=== PATIENT | female | born 1950 | race Caucasian/White ===

== ENCOUNTER → 2017-02-09 | Outpatient (CLI) | payer MEDICARE ==
[2017-02-09 13:53] LABS: BUN 16 mg/dL (7-18)
[2017-02-09 13:54] LABS: GFR (ESTIMATED) 41 ML/MIN (59-)
[2017-02-09 14:35] LABS: HEMOGLOBIN 10.6 g/dL (12.2-16.2); LYMPH # 0.7 K/mm3 (0.7-4.5); LYMPH % 21.6 % (10-50.0)
== END ==
LOC: CARL-LAB 09:24
PROVIDERS: Family Medicine
DX: E11.9 Type 2 diabetes mellitus without complications (principal)